=== PATIENT | female | born 1980 | race Caucasian/White ===

== ENCOUNTER 2017-04-16 09:35 | Emergency (ER) | payer OTHER ==
[2017-04-16 10:08] LABS: RBC URINE 80 /hpf (0-3); URINE BILIRUBIN NEGATIVE (NEGATIVE); URINE BLOOD 3+ (NEGATIVE); URINE COLOR Yellow (YELLOW); URINE GLUCOSE (UA) NORMAL (Normal); URINE KETONE NEGATIVE (NEGATIVE); URINE LEUKOCYTE ESTERASE NEG Leu/uL (Negative); URINE PROTEIN NEGATIVE (NEGATIVE); URINE UROBILINOGEN NORMAL mg/dL (0.2-1.0); WBC URINE 2 /hpf (0-5)
--- NOTE | 2017-04-16 10:41 | C.PDOC ---
History Of Present Illness <Sasha Farmer - Last Filed: 04/16/17 12:47> <Jazmyne Delong - Last Filed: 04/18/17 16:44> Veda Matos, a 36 year old female, presents to the ED complaining of dysuria x4- 5 days. The patient reports that she was seen at [facility] and had a UA performed which revealed she had a urinary tract infection. She states that she was prescribed ciprofloxacin and pyridium. The patient states that even with medications her symptoms have not improved and she is now having vaginal pain and subjective fever. Denies fever, vaginal bleeding, back pain. (Sasha Farmer) History Per: Patient History/Exam Limitations: no limitations Onset/Duration Of Symptoms: Days (4-5 days) Current Symptoms Are (Timing): Still Present Quality Of Discomfort: "Pain" Associated Symptoms: Fever, Urinary Symptoms (dysuria). denies: Vomiting, Back Pain Alleviating Factors: None Recent travel outside of the [place]: No Abnormal Vaginal Bleeding: No <Sasha Farmer - Last Filed: 04/16/17 12:47> <Jazmyne Delong - Last Filed: 04/18/17 16:44> Time Seen by Provider: 04/16/17 10:12 Chief Complaint (Nursing): Female Genitourinary Past Medical History Reviewed: Historical Data, Nursing Documentation, Vital Signs - Medical History PMH: No Chronic Diseases Surgical History: No Surg Hx Family History: States: Unknown Family Hx - Social History Hx Alcohol Use: Yes Hx Substance Use: No - Immunization History Hx Tetanus Toxoid Vaccination: Yes Hx Influenza Vaccination: Yes Hx Pneumococcal Vaccination: Yes <Sasha Farmer - Last Filed: 04/16/17 12:47> Review Of Systems Except As Marked, All Systems Reviewed And Found Negative. Constitutional: Positive for: Fever (subjective) Gastrointestinal: Negative for: Vomiting Genitourinary: Positive for: Dysuria (4-5 days). Negative for: Vaginal Bleeding Musculoskeletal: Positive for: Back Pain <Sasha Farmer - Last Filed: 04/16/17 12:47> Physical Exam - Physical Exam Appears: Well, Non-toxic, No Acute Distress Skin: Normal Color, Warm, Dry, No Rash Head: Atraumatic, Normacephalic, No Tenderness, No Swelling Eye(s): bilateral: Normal Inspection, PERRL, EOMI Ear(s): Bilateral: Normal Nose: Normal, No Discharge, No Deformity, No Tenderness Oral Mucosa: Moist, No Dry, No Drooling Tongue: Normal Appearing, No Swelling, No Laceration Lips: Normal Appearing, No Swelling, No Abrasion Teeth: Normal Dentition, No Edentulous, No Dentures Gingiva: Normal Appearing, No Erythema, No Swelling, No Bleeding Throat: Normal, No Erythema, No Exudate Neck: Normal, Normal ROM, No Step Off Deformity, Supple Lymphatic: Normal Exam Chest: Symmetrical, No Deformity, No Tenderness Cardiovascular: Rhythm Regular, No Edema, No Friction Rub, No Murmur Respiratory: Normal Breath Sounds, No Rales, No Rhonchi, No Stridor, No Wheezing Gastrointestinal/Abdominal: Normal Exam, Bowel Sounds, Soft, No Tenderness, No Mass, No Guarding, No Rebound Back: Normal Inspection, No CVA Tenderness, No Vertebral Tenderness, No Paraspinal Tenderness Pelvic: Normal External Exam, Vaginal Bleeding (moderate vaginal bleeding), No Vaginal Discharge (No evidence of discharge), No Cervical Motion Tenderness, Adnexal Tenderness (left sided) Extremity: Normal ROM, No Tenderness, No Deformity, No Swelling Neurological/Psych: Oriented x3, Normal Speech, Normal Cognition, Normal Motor Gait: Steady <Sasha Farmer - Last Filed: 04/16/17 12:47> ED Course And Treatment O2 Sat by Pulse Oximetry: 98 (RA) Pulse Ox Interpretation: Normal <Sasha Farmer - Last Filed: 04/16/17 12:47> Progress Note: Upon my review of this chart, it does not appear that a test was performed during this visit. I talked to the patient over the telephone and instructed her to return to the ED in order for us to perform a test and re-evaluate her. <Jazmyne Delong - Last Filed: 04/18/17 16:44> Medical Decision Making <Sasha Farmer - Last Filed: 04/16/17 12:47> <Jazmyne Delong E - Last Filed: 04/18/17 16:44> Medical Decision Making: UA is negative at this time, but (+) for blood. Patient reports that she is currently on her menses. Pelvic exam had no discharge or CMT, but (+) for adnexal tenderness. Ultrasound ordered. Results were discussed with the patient. On re-exam, the patient reports improvement of symptoms. Lungs are CTA , heart is RRR, abdomen is soft, non-tender and patient is tolerating PO well. Ambulatory in the ED with steady gait. Follow up with the OBGYN within 1-2 days without fail. Return if worsened. (Sasha Farmer) Disposition - Disposition Disposition Time: 12:50 <Sasha Farmer - Last Filed: 04/16/17 12:47> <Jazmyne Delong - Last Filed: 04/18/17 16:44> - Disposition Referrals: Yvonne Torres MD [Staff Provider] - Jose Narvaez [Staff Provider] - Disposition: HOME/ ROUTINE Condition: GOOD Additional Instructions: Follow up with the OBGYN within 1-2 days without fail. Return if worsened. Prescriptions: Naproxen [Naprosyn] 500 mg PO BID #20 tab traMADol [Ultram] 50 mg PO Q6 PRN #20 tab PRN Reason: Pain Instructions: Ovarian Cyst (ED) Forms: [employer] ([place] Citizen) Print Language: BAHAMIAN - Clinical Impression Clinical Impression: Ovarian cyst - Scribe Statement The provider has reviewed the documentation as recorded by the Scribe <Sasha Farmer - Last Filed: 04/16/17 12:47> <Jazmyne Delong - Last Filed: 04/18/17 16:44> - Scribe Statement Daniela Canseco All medical record entries made by the Scribe were at my direction and personally dictated by me. I have reviewed the chart and agree that the record accurately reflects my personal performance of the history, physical exam, medical decision making, and the department course for this patient. I have also personally directed, reviewed, and agree with the discharge instructions and disposition. (Sasha Farmer)
--- NOTE | 2017-04-16 12:25 | US ---
HISTORY: VAG BLEED, pelvic pain, r/o ovarian/rupture cyst COMPARISON: CT of the abdomen and pelvis without oral or IV contrast performed 09/13/14 TECHNIQUE: Real-time transabdominal pelvic ultrasound was performed. In addition a transvaginal pelvic ultrasound was necessary to better depict pelvic anatomy. FINDINGS: UTERUS: Measures 8.3 x 5.2 x 6.2 cm. Anteverted. Probable fundal fibroid measures approximately 2.2 x 1.7 x 2.5 cm. ENDOMETRIUM: Measures 9 mm in diameter. CERVIX: No cervical abnormality identified. RIGHT OVARY: Measures 2.9 x 1.4 x 1.9 cm. Blood flow is demonstrated. 1.2 x 1.1 x 1.0 cm probable cyst. LEFT OVARY: Measures 6.8 x 4.4 x 6.4 cm. Blood flow is demonstrated. Echogenic focus measuring approximately 11 mm, possibly dermoid. Complex cystic appearing focus measures approximately 4.0 x 2.1 cm. Additional smaller probable cyst/follicles. FREE FLUID: No significant free fluid noted. OTHER FINDINGS: None. IMPRESSION: Enlarged heterogeneous appearance of the left ovary. Suspected dermoid. Additional complex appearing adnexal or ovarian cyst measures approximately 4.0 cm. Additional probable smaller cyst/follicle. Recommend 6 week ultrasound follow-up to assess for resolution. 1.2 x 1.1 x 1.0 cm right ovarian follicle/cyst. 2.2 x 1.7 x 2.5 cm probable fundal fibroid.
[2017-04-16 12:52] VITALS: BP 109/73; PULSE 56; RESP 16; TEMP 97.6
[2017-04-16 12:53] VITALS: O2SAT 98
== END 2017-04-16 13:00 | disposition home or self-care (01) ==
LOC: C.ER 09:35
DX: N83.209 Unspecified ovarian cyst, unspecified side (principal)
CPT/HCPCS: 76830; 76856; 81001; 87086; 96372; 99283; J1885

== ENCOUNTER 2018-10-03 07:10 | Emergency (ER) | payer BC ==
--- NOTE | 2018-10-03 08:05 | C.PDOC ---
History Of Present Illness 38 y/o female presents to the ER complaining of flu like symptoms including cough and body aches. Patient is also complaining of dysuria. Patient denies having fever,chills, nausea, vomiting, abdominal pain, and hematuria. Time Seen by Provider: 10/03/18 07:21 Chief Complaint (Nursing): Flu-like Symptoms History Per: Patient History/Exam Limitations: no limitations Onset/Duration Of Symptoms: Days Current Symptoms Are (Timing): Still Present Associated Symptoms: Cough Severity: Moderate Past Medical History Reviewed: Historical Data, Nursing Documentation, Vital Signs Vital Signs: Last Vital Signs Temp 98.1 F 10/03/18 07:16 Pulse 76 10/03/18 07:16 Resp 18 10/03/18 07:16 BP 104/70 10/03/18 07:16 Pulse Ox 95 10/03/18 07:16 - Medical History PMH: No Chronic Diseases Other Surgeries: Hx of surgeries Family History: States: No Known Family Hx - Social History Hx Alcohol Use: Yes Hx Substance Use: No - Immunization History Hx Tetanus Toxoid Vaccination: Yes Hx Influenza Vaccination: Yes Hx Pneumococcal Vaccination: Yes Review Of Systems Except As Marked, All Systems Reviewed And Found Negative. Constitutional: Positive for: Malaise. Negative for: Fever, Chills Respiratory: Positive for: Cough Gastrointestinal: Negative for: Nausea, Vomiting, Abdominal Pain Genitourinary: Positive for: Dysuria. Negative for: Hematuria Physical Exam - Physical Exam Appears: Non-toxic, No Acute Distress Skin: Normal Color, Warm, Dry Head: Atraumatic, Normacephalic Eye(s): bilateral: Normal Inspection Nose: Normal Oral Mucosa: Moist Neck: Supple Chest: Symmetrical Cardiovascular: Rhythm Regular Respiratory: Normal Breath Sounds, No Rales, No Rhonchi, No Wheezing Gastrointestinal/Abdominal: Soft, Tenderness (minimal suprapubic tenderness), No Guarding, No Rebound Neurological/Psych: Oriented x3, Normal Speech ED Course And Treatment - Laboratory Results Urine POC: Negative O2 Sat by Pulse Oximetry: 95 (RA) Pulse Ox Interpretation: Normal Progress Note: Treated with motrin PO. Rapid Flu (+) Reassessment Condition: Improved Medical Decision Making Medical Decision Making: Plan: --Flu Swab --UA --Motrin PO Disposition Counseled Patient/Family Regarding: Studies Performed, Diagnosis, Need For Followup - Disposition Referrals: Elieser Calderón [facility] [Outside] [facility] [Outside] Disposition: HOME/ ROUTINE Disposition Time: 09:00 Condition: IMPROVED Additional Instructions: Drink lots of fluids Tylenol or motrin as needed Instructions: Flu, Adult (DC) Forms: [employer] (Maltese), Work Excuse - POA Present On Arrival: None - Clinical Impression Clinical Impression: Influenza - PA / LICENSE REGISTRATION EXAMINER / Resident Statement MD/DO has reviewed & agrees with the documentation as recorded. - Scribe Statement The provider has reviewed the documentation as recorded by the Juventino Johnson Provider Attestation All medical record entries made by the Amandaibferny were at my direction and personally dictated by me. I have reviewed the chart and agree that the record accurately reflects my personal performance of the history, physical exam, medical decision making, and the department course for this patient. I have also personally directed, reviewed, and agree with the discharge instructions and disposition.
[2018-10-03 08:37] LABS: HCG,QUALITATIVE URINE NEGATIVE (NEGATIVE)
[2018-10-03 08:41] LABS: SQUAMOUS EPITHIAL 4 /hpf (0-5); URINE BACTERIA RARE (<OCC); URINE BILIRUBIN NEGATIVE (NEGATIVE); URINE BLOOD 1+ (NEGATIVE); URINE CLARITY Clear (Clear); URINE COLOR Yellow (YELLOW); URINE GLUCOSE (UA) NORMAL (Normal); URINE LEUKOCYTE ESTERASE TRACE Leu/uL (Negative); URINE PROTEIN NEGATIVE (NEGATIVE); URINE UROBILINOGEN NORMAL mg/dL (0.2-1.0)
[2018-10-03 09:27] VITALS: BP 107/68; PULSE 60; RESP 20; TEMP 98.5
[2018-10-03 15:54] VITALS: O2SAT 95
== END 2018-10-03 09:27 | disposition home or self-care (01) ==
LOC: C.ER 07:10
DX: J11.1 Influenza due to unidentified influenza virus with other respiratory manifestations (principal)